=== PATIENT | female | born 1960 | race Caucasian/White ===

== ENCOUNTER → 2018-07-08 | Outpatient (CLI) | payer OTHER ==
--- NOTE | 2018-07-09 10:52 | MM ---
Reason for exam: screening (asymptomatic). Baseline mammogram. History: Patient is postmenopausal. Physical Findings: Nurse did not find any significant physical abnormalities on exam. MG Screening Mammo w CAD Bilateral CC and MLO view(s) were taken. The breast tissue is heterogeneously dense. This may lower the sensitivity of mammography. Benign oil cysts left breast. A few asymmetric densities on the left can be further evaluated with spot compression. These results were verbally communicated with the patient and result sheet given to the patient on 07/08/18. ASSESSMENT: Incomplete: need additional imaging evaluation, BI-RAD 0 RECOMMENDATION: Special view mammogram of the left breast.
--- NOTE | 2018-07-09 10:53 | MM ---
Reason for exam: additional evaluation requested from abnormal screening. History: Patient is postmenopausal. Physical Findings: Breast exam preformed at baseline screening. MG Work Up Mamm w CAD LT Spot compression CC and spot compression MLO view(s) were taken of the left breast. The breast tissue is heterogeneously dense. This may lower the sensitivity of mammography. Anterior 1 o'clock focal asymmetry seems to persist. The other two asymmetric densities disperse. These results were verbally communicated with the patient and result sheet given to the patient on 07/08/18. ASSESSMENT: Incomplete: need additional imaging evaluation, BI-RAD 0 RECOMMENDATION: Ultrasound of the left breast. (upper outer quadrant)
--- NOTE | 2018-07-09 10:55 | USB ---
Reason for exam: additional evaluation requested from abnormal screening. History: Patient is postmenopausal. US Breast Workup Limited LT Left limited breast ultrasound including focal area of concern, retroareolar and axilla demonstrates no cystic or solid lesion seen. Scanned 12-3 o'clock. 6 month follow up mammogram recommended. These results were verbally communicated with the patient and result sheet given to the patient on 07/08/18. ASSESSMENT: Probably benign, BI-RAD 3 RECOMMENDATION: Follow-up diagnostic mammogram of the left breast in 6 months.
== END | disposition home or self-care (01) ==
LOC: RADMAMWWP 15:36
PROVIDERS: ATTEND Family Medicine
DX: Z12.31 Encounter for screening mammogram for malignant neoplasm of breast (principal); R92.8 Other abnormal and inconclusive findings on diagnostic imaging of breast
CPT/HCPCS: 77065; 77067

== ENCOUNTER → 2019-10-06 | Outpatient (CLI) | payer OTHER ==
--- NOTE | 2019-10-07 09:11 | MM ---
Reason for exam: screening (asymptomatic). Last mammogram was performed 1 year and 3 months ago. History: Patient is postmenopausal. Physical Findings: A clinical breast exam by your physician is recommended on an annual basis and results should be correlated with mammographic findings. MG Screening Mammo w CAD Bilateral CC and MLO view(s) were taken. Prior study comparison: July 08, 2018, left breast MG work up mamm w CAD LT. July 08, 2018, bilateral MG screening mammo w CAD. The breast tissue is heterogeneously dense. This may lower the sensitivity of mammography. Benign appearing bilateral calcifications. No significant changes when compared with prior studies. ASSESSMENT: Benign, BI-RAD 2 RECOMMENDATION: Routine screening mammogram of both breasts in 1 year.
== END | disposition home or self-care (01) ==
LOC: RADMAMWWP 09:11
PROVIDERS: ATTEND Family Medicine
DX: Z12.31 Encounter for screening mammogram for malignant neoplasm of breast (principal)
CPT/HCPCS: 77067

== ENCOUNTER → 2023-12-16 | Outpatient (CLI) | payer OTHER ==
--- NOTE | 2023-12-17 13:41 | MM ---
Reason for Exam: Screening (asymptomatic). Last mammogram was performed 4 year(s) and 3 month(s) ago. Patient History: Menarche at age 12. First Full-Term at age 24. Postmenopausal. Maternal aunt had breast cancer at or over age 50. Risk Values: Tori 5 year model risk: 1.4%. NCI Lifetime model risk: 6.0%. Prior Study Comparison: 07/08/2018 Bilateral Screening Mammogram, [facility]. 07/08/2018 Left Diagnostic Mammogram, [facility]. 10/06/2019 Bilateral Screening Mammogram, [facility]. Tissue Density: The breasts are heterogeneously dense, which may obscure small masses. Findings: Analyzed By CAD. Right breast: There is no suspicious group of microcalcifications or new suspicious mass. Left breast: There is no suspicious group of microcalcifications or new suspicious mass. Overall Assessment: Negative, BI-RAD 1 Management: Screening Mammogram of both breasts in [address] [facility] will attempt to contact patient to return for supplemental views and ultrasound if indicated. Patient should continue monthly self-breast exams. A clinical breast exam by your physician is recommended on an annual basis. This exam should not preclude additional follow-up of suspicious palpable abnormalities. Note on Tori scores and lifetime risk: 1. A Tori score greater than 3% is considered moderate risk. If this is the case, consider specialist referral to assess eligibility for a risk reducing agent. 2. If overall lifetime risk for the development of breast cancer is 20% or higher, the patient may qualify for future screening with alternating mammogram and breast MRI. [facility], , 12/17/2023 1:38 PM. Electronically signed and approved by: Cas Alarcon DO
== END | disposition home or self-care (01) ==
LOC: RADMAMWWP 07:35
PROVIDERS: ATTEND Family Medicine
DX: Z12.31 Encounter for screening mammogram for malignant neoplasm of breast
CPT/HCPCS: 77063; 77067

== ENCOUNTER → 2024-04-11 | Outpatient (CLI) | payer OTHER ==
--- NOTE | 2024-04-13 19:15 | MR ---
EXAMINATION TYPE: MR shoulder LT wo con DATE OF EXAM: 04/11/2024 8:43 PM COMPARISON: None. CLINICAL INDICATION: Female, 63 years old with history of M25.512, Left shoulder pain for about 3 mon ths. IV Contrast: cc (None if empty) TECHNIQUE: Multiplanar, multisequence imaging of the left shoulder is performed without contrast. FINDINGS: There is no bone contusion or fracture. There is moderate osteoarthritic change of the AC joint. There is a small glenohumeral joint effusion. There is moderate subacromial and subdeltoid bursitis. There is a complete full-thickness tear of the supraspinatus with retraction of the musculotendinous junction medially. There is a partial tear of the infraspinatus at the musculotendinous junction. The re is tendinosis with probable small intrasubstance tearing of the subscapularis tendon. There is a s ubacromial spur resulting in marked shoulder impingement. The biceps tendon is normal in signal intensity and position within the bicipital groove and the lisa ps anchor is intact and there is no evidence of labral tear. IMPRESSION: 1. Moderate osteoarthritic change of the AC joint with a subacromial spur resulting in marked shoulde r impingement. 2. Rotator cuff tears involving the supraspinatus, infraspinatus and likely subscapularis tendon as w ell. There is a complete full-thickness tear of the supraspinatus with retraction medially. 3. No labral injury. 4. small glenohumeral joint effusion. 5. moderate subacromial and subdeltoid bursitis. [facility], , 04/13/2024 7:13 PM
== END | disposition home or self-care (01) ==
LOC: RADMRIMAIN 20:24
PROVIDERS: ATTEND Orthopaedic Surgery
DX: M19.012 Primary osteoarthritis, left shoulder (principal); M75.52 Bursitis of left shoulder; M25.812 Other specified joint disorders, left shoulder; M75.112 Incomplete rotator cuff tear or rupture of left shoulder, not specified as traumatic

== ENCOUNTER → 2024-05-12 | Outpatient (CLI) | payer OTHER ==
[2024-05-12 21:02] LABS: Basophils # (A) 0.04 X 10*3/uL (0.00-0.10); Eosinophils # (A) 0.15 X 10*3/uL (0.04-0.35); Eosinophils % (A) 3.6 %; HCT 40.7 % (37.2-46.3); HGB 12.7 g/dL (12.0-15.0); Lymphocytes # (A) 0.79 X 10*3/uL (0.90-5.00); Lymphocytes % (A) 18.9 %; MCH 30.9 pg (27.0-32.0); MCHC 31.2 g/dL (32.0-37.0); Mean Platelet Volume 9.5 FL (9.5-12.2); Monocytes # (A) 0.51 X 10*3/uL (0.20-1.00); Monocytes % (A) 12.2 %; NRBC Per 100 WBC 0 X 10*3/uL (0.00-0.01); Neutrophils # (A) 2.68 X 10*3/uL (1.80-7.70); Neutrophils % (A) 64.1 %; Platelet Count 298 X 10*3/uL (140-440); RBC 4.11 X 10*6/uL (4.10-5.20); RDW 12.7 % (11.5-14.5); WBC 4.18 X 10*3/uL (4.50-10.00)
== END | disposition home or self-care (01) ==
LOC: LABPAT 11:49
PROVIDERS: ATTEND Orthopaedic Surgery
DX: Z01.818 Encounter for other preprocedural examination (principal); M75.42 Impingement syndrome of left shoulder; R94.31 Abnormal electrocardiogram [ECG] [EKG]
CPT/HCPCS: 85025; 93005

== ENCOUNTER 2024-05-25 07:43 | Day surgery (SDC) | payer OTHER ==
--- NOTE | 2024-05-24 13:47 | HP ---
HISTORY AND PHYSICAL DATE OF SURGERY: 05/25/2024. HISTORY OF PRESENT ILLNESS: Maggy Resendez is a 63-year-old patient seen with progressive left shoulder pain. We discussed options regarding treatment. She elected to proceed with left shoulder arthroscopy. Consent was obtained. PAST MEDICAL HISTORY: Noncontributory. PAST SURGICAL HISTORY: Noncontributory. DAILY MEDICATIONS: 1. Ibuprofen. 2. Tylenol. ALLERGIES: Sodium sulfate. SOCIAL HISTORY: She denies current tobacco use. PHYSICAL EVALUATION OF THE LEFT SHOULDER: Flexion is 150 degrees. Abduction is 110 degrees. External rotation is 35 degrees with pain and weakness. Tenderness along the anterolateral acromion, bicipital groove, rotator cuff tendon, and biceps tendon itself. Impingement is positive at 90 degrees. Cross-body adduction sign is positive. Drop-arm sign is positive. Distal neurovascular exam is intact. IMAGING STUDIES: Left shoulder radiographs revealed a type 2 acromion, acromioclavicular joint osteoarthritis and cystic changes of the tuberosity. An MRI of left shoulder revealed rotator cuff tendon tears, impingement and acromioclavicular joint osteoarthritis. IMPRESSION: 1. Left shoulder impingement with rotator cuff tears. 2. Left shoulder acromioclavicular joint osteoarthritis. 3. Left shoulder bicipital tendinitis. PLAN: Left shoulder arthroscopy with subacromial decompression, rotator cuff repair, Debbie, biceps tenodesis, and debridement. MMODL / IJN: [id number] /
[2024-05-25] MEDS: MIDAZOLAM 2 MG/2 ML VIAL IVP ONE (06:57)
[~2024-05-25 07:43] MED LIST: HYDROmorphone 0.5 MG/0.5 ML SYRINGE IVP PRN
[2024-05-25] MEDS: ONDANSETRON 4 MG/2 ML VIAL IVP ONE (08:35)
[2024-05-25] MEDS: DEXAMETHASONE SOD PHOSPHATE 4 MG/ML 1 ML VIAL IV ONE (08:35)
[2024-05-25] MEDS: LACTATED RINGERS 1,000 ML IV SCH (08:35)
[2024-05-25] MEDS: IV FLUID CONTINUATION 1,000 ML IV ONE (08:37)
[2024-05-25 09:07] LABS: African American GFR (CKD) >90 (>60 ml/min/1.73 sqM); Anion Gap 5 mmol/L; Blood Urea Nitrogen 18 mg/dL (7-17); Calcium 9.2 mg/dL (8.4-10.2); Carbon Dioxide 30 mmol/L (22-30); Chloride 103 mmol/L (98-107); Glucose 76 mg/dL (74-99); Non-African American GFR(CKD) >90 (>60 ml/min/1.73 sqM); Potassium 3.9 mmol/L (3.5-5.1); Sodium 138 mmol/L (137-145)
[2024-05-25] MEDS ORDERED: ROCURONIUM 10 MG/ML (5 ML VIAL) IV ONE (09:27)
[2024-05-25] MEDS ORDERED: MIDAZOLAM 2 MG/2 ML VIAL ONE (09:27)
[2024-05-25] MEDS ORDERED: fentaNYL (PF) 50 MCG/ML 2 ML AMP ONE (09:27)
[2024-05-25] MEDS ORDERED: ePHEDrine 50 MG/ML 1 ML VIAL ONE (09:27)
[2024-05-25] MEDS ORDERED: LIDOCAINE 1% INJ 10MG/ML (20 ML MDV) ONE (09:27)
[2024-05-25] MEDS ORDERED: DEXAMETHASONE SOD PHOSPHATE 4 MG/ML 1 ML VIAL ONE (09:27)
[2024-05-25] MEDS ORDERED: SUCCINYLCHOLINE CHLORIDE 200 MG/10 ML VIAL IV ONE (09:27)
[2024-05-25] MEDS ORDERED: PHENYLEPHRINE 10 MG/ML VIAL ONE (09:27)
[2024-05-25] MEDS ORDERED: NEOSTIGMINE 1 MG/ML 10 ML VIAL ONE (09:27)
[2024-05-25] MEDS ORDERED: GLYCOPYRROLATE 0.2 MG/ML 2 ML VIAL ONE (09:27)
[2024-05-25] MEDS ORDERED: ROPIVACAINE 5 MG/ML 30 ML VIAL ONE (09:27)
[2024-05-25] MEDS ORDERED: PROPOFOL 10 MG/ML 20 ML VIAL IV ONE (09:27)
--- NOTE | 2024-05-25 11:07 | P.ANPRN ---
Procedure Note - Anesthesia - Nerve Block Performed Left Interscalene Single Time Out Performed: Yes Date of Procedure: 05/25/24 Procedure Start Time: 08:56 Procedure Stop Time: 09:00 Location of Patient: PreOp Indication: Acute Post-Operative Pain, Requested by Surgeon Sedation Type: Sedate with meaningful contact maintained Preparation: Sterile Prep Position: Supine Needle Types: Pajunk Ultrasound used to visualize needle placement: Yes Ultrasound used to observe medication spread: Yes Blood Aspirated: No Pain Paresthesia on Injection Noted: No Resistance on Injection: Normal Image Stored and Saved: Yes Events: Uneventful and Well Tolerated (Ropivacaine 0.5% 20 cc plus dexamethasone 4 mg)
[2024-05-25] MEDS: LACTATED RINGERS 1,000 ML IV ONE (11:20)
--- NOTE | 2024-05-25 11:30 | P.OP ---
Date of Procedure: 05/25/24 Preoperative Diagnosis: Left shoulder impingement Postoperative Diagnosis: 1. Left shoulder rotator cuff tear 2. Left shoulder impingement 3. Left shoulder partial long head biceps tendon tear 4. Left shoulder superficial labral tear Procedure(s) Performed: 1. Left shoulder arthroscopic rotator cuff repair 2. Left shoulder arthroscopic subacromial decompression 3. Left shoulder arthroscopic biceps tenodesis 4. Left shoulder arthroscopic debridement labral tear Implants: 5Arthrex 4.75 swivel lock anchors Anesthesia: GETA, regional (Interscalene block) Surgeon: Juan Lin Matting Press Tender #1: Giuseppe Lozada Estimated Blood Loss (ml): 10 Pathology: none sent Condition: stable Disposition: PACU Indications for Procedure: 63-year-old patient seen with progressive left shoulder pain. After having treatment options discussed, she elected to proceed with arthroscopy. Operative Findings: See description of procedure Description of Procedure: Patient underwent an interscalene block by department of anesthesia. The patient was then taken to the operative suite. The patient underwent a general anesthetic by the department of anesthesia. The patient was placed into a lateral position and secured. There was appropriate padding of the bony prominence. Left shoulder was then prepped and draped in normal sterile orthopedic fashion. We placed the extremity in 10 pounds of longitudinal traction. A posterior incision was now made for a posterior working portal site. The trocar and cannula were inserted into the glenohumeral joint. Arthroscopy was initiated. Spinal needle was now inserted anteriorly, to ascertain the anterior working portal site. An incision was now made in that area, a trocar was inserted followed by a probe. There was hyperemia and partial tearing long head biceps tendon. There was a superficial labral tear present. There were mild grade I chondromalacia changes of the glenoid fossa. There was a massive rotator cuff tear present. I debrided out the superficial labral tear utilizing a motorized shaver. I introduced the cannula through the anterior portal site. I passed a loop and tack type stitch through the biceps tendon. I now released the biceps tendon from the superior labral anchor. I now with the assistance of Demetrius CEJA punch hole at the interval for insertion of an anchor. The suture limb was now passed through the eyelet of an Arthrex 4.75 swivel lock anchor. I placed the eyelet into the prepunch hole, held in position while Demetrius CEJA tensioned the suture and deployed the anchor with good fixation noted. The residual suture limb was clipped. We had a stable appearing biceps tenodesis. The residual labrum was again probed and found to be stable. Instruments were now removed from the glenohumeral joint. Utilizing the posterior working portal site, the trocar and cannula were inserted into the subacromial space. Arthroscopy initiated. I made an incision 2 fingerbreadths lateral to the acromion. I introduced my trocar followed by my ArthroCare ablator. I now began ablating thick subacromial bursal tissue, which exposed the undersurface of the anterior acromion. There was diminished subacromial space. There was a very prominent anterior acromion. A motorized bur was introduced and a subacromial decompression was performed. I also excised some osteophytes off the inferior aspect of the distal clavicle. The AC joint was visualized and noted to be moderately arthritic, not enough to warrant a Debbie procedure. I turned my attention to the rotator cuff. There was a sig nificant large 3 cm rotator cuff tear with significant frayed margins and some retraction. I debrided the margins getting down to stable tendon tissue. I introduced my motorized bur and abraded the footprint area, getting some petechial bleeding. I now made an accessory portal site off the lateral aspect of the acromion. I punched [] holes medial for medial row fixation with the assistance of Demetrius CEJA carefully tapping the punch with a mallet as I held the punch and the camera. I now introduced both anchors into the pre-punched holes and Demetrius CEJA tapped them with the mallet as I held anchors and the camera. Demetrius CEJA now screwed the anchors in place a while I held the anchor guide and camera. All 8 limbs of suture were now passed through good bites of rotator cuff tendon. I now punched 2 holes for lateral row fixation again I held the punch and camera while Demetrius CEJA used a mallet to tap in the punch. We now passed sutures through both anchors and individually I introduced the anchors into the pre-punch holes I held the anchor guide in position with one hand holding the camera with the other hand while Demetrius CEJA tensioned the sutures and screwed in the anchors one at a time. All residual suture limbs were now clipped. We had good compression of the tendon along the entire footprint. Instruments now removed from the portal sites. All portal s ites were approximated with nylon suture. Sterile dressings were applied followed by a shoulder immobilizer. Giuseppe CEJA assisted in this complex case. The patient was awakened, transferred to a bed, and taken to recovery in stable condition.
[2024-05-25 11:49] VITALS: TEMP 96.9
[2024-05-25 12:34] VITALS: RESP 16
[2024-05-25 13:00] VITALS: BP 121/75; PULSE 67
== END 2024-05-25 13:24 | disposition home or self-care (01) ==
LOC: OR 07:43
PROVIDERS: ATTEND Orthopaedic Surgery
DX: S46.012A Strain of muscle(s) and tendon(s) of the rotator cuff of left shoulder, initial encounter (principal); M75.22 Bicipital tendinitis, left shoulder; M19.012 Primary osteoarthritis, left shoulder; Z88.2 Allergy status to sulfonamides; X58.XXXA Exposure to other specified factors, initial encounter
CPT/HCPCS: 64415; 80048; 29827; 29828; 29824; C1894; C1713 ×3; J2250; J0330; J1100; J2710; J2405; J0690; J2003; J3010; J2795; J2704; J2371; J1596